=== PATIENT | male | born 1990 | race Caucasian/White ===

== ENCOUNTER 2020-06-19 14:02 | Emergency (ER) | payer OTHER ==
[2020-06-19 14:40] VITALS: BP 136/83; PULSE 86; TEMP 98.7; BMI 30.4
[2020-06-19] MEDS ORDERED: SODIUM CHLORIDE 1,000 ML IV STA (14:50)
[2020-06-19] MEDS ORDERED: ONDANSETRON 4 MG/2 ML VIAL IVPUSH ONE (14:51)
--- NOTE | 2020-06-19 15:08 | PDOC ---
History of Present Illness - General Chief Complaint: Pain Stated Complaint: ABD PAIN Time Seen by Provider: 06/19/20 14:45 History Source: Patient Exam Limitations: No Limitations - History of Present Illness Initial Comments: 06/19/20 15:04 Patient is a 30-year-old male with no past medical history who presents to the ED with complaint of left-sided abdominal pain that started about 12:30 today. He states the pain started suddenly. He states he also had a similar pain 15 days ago which resolved on its own. He did not get seen 15 days ago for the pain. He denies any shortness of breath or chest pain. He denies any recent travel. He has not taken anything for his symptoms. He admits to some nausea without vomiting. He denies any dysuria or hematuria. He denies any allergies to medications. Past History - Medical History Allergies/Adverse Reactions: Allergies Allergy/AdvReac Type Severity Reaction Status Date / Time No Known Allergies Allergy Verified 06/19/20 14:23 Home Medications: Ambulatory Orders Tamsulosin HCl [Flomax] 0.4 mg PO DAILY #7 cap.er.24h 06/19/20 levoFLOXacin [Levaquin -] 250 mg PO DAILY #4 tablet 06/19/20 - Psycho-Social/Smoking History Smoking History: Never smoked Information on smoking cessation initiated: No - Substance Abuse Hx (Audit-C & DAST Scrn) How often the patient has a drink containing alcohol: Never Score: In Men: 4 or > Positive; In Women: 3 or > Positive: 0 Screen Result (Pos requires Nsg. Audit-10AR): Negative In the last yr the pt used illegal drug/Rx for NonMed reason: No Score: Yes response is considered Positive: 0 Screen Result (Positive result requires Nsg. DAST-10): Negative Review of Systems - Review of Systems Comments:: 06/19/20 15:05 - Review of Systems Able to Perform ROS?: Yes Constitutional: No: Fever, Chills, Loss of Appetite, Night Sweats, Weakness HEENTM: No: Eye Pain, Vision changes, Ear Pain, Throat Pain, Throat Swelling, Mouth Pain, Difficulty Swallowing Respiratory: No: Cough, Shortness of Breath, Wheezing, Sputum Production Cardiac (ROS): No: Chest Pain, Chest Tightness, Palpitations, Irregular Heart Beat, Edema ABD/GI: No: Vomiting, Diarrhea; positive: Left-sided abdominal pain and nausea : No Dysuria, No Hematuria, No Frequency, No Urgency, No Penile Discharge/Pain Musculoskeletal: No: Muscle Pain, Back Pain, Joint Pain, Muscle Weakness, Neck Pain Integumentary: No: Lesions, Rash Neurological: No: Headache, Numbness, Tingling, Weakness, Speech Difficulties *Physical Exam - Vital Signs Last Vital Signs Temp Pulse Resp BP Pulse Ox 98.7 F 86 17 136/83 99 06/19/20 14:18 06/19/20 14:18 06/19/20 14:18 06/19/20 14:18 06/19/20 14:18 - Physical Exam 06/19/20 15:06 - Physical Exam General Appearance: Nourished, Appropriately Dressed, No Distress HEENT: EOMI, Normal Voice, Hearing Grossly Normal Neck: Supple, No Lymphadenopathy (R), No Lymphadenopathy (L), No Rigidity, No Decreased range of motion Respiratory/Chest: Lungs Clear, Normal Breath Sounds. No Respiratory Distress, No Accessory Muscle Use Cardiovascular: Regular Rhythm, Regular Rate, S1, S2 Gastrointestinal/Abdominal: Normal Bowel Sounds, Soft. No Rebound, No Rigidity; there is some mid left abdominal tenderness to palpation. Positive CVA tenderness on the left. Positive voluntary guarding. No tympanitic abdomen Musculoskeletal: Normal Inspection. No Decreased Range of Motion Extremity: Normal Capillary Refill, Normal Inspection Integumentary: Normal Color, Dry. No Rash Neurologic: special education aide II-XII NML intact, Fully Oriented, Alert, Normal Mood/Affect, Normal Response ED Treatment Course - LABORATORY CBC & Chemistry Diagram: 06/19/20 15:00 06/19/20 15:00 - RADIOLOGY Radiology Studies Ordered: Category Date Time Status SPIRAL- RENAL-STONE CT [CT] Stat CT Scan 06/19/20 14:51 Ordered - Medications Given in the ED: ED Medications Discontinued Medications Generic Name Dose Route Start Last Admin Trade Name Freq PRN Reason Stop Dose Admin Ondansetron HCl 4 mg 06/19/20 14:51 06/19/20 15:02 Zofran Injection IVPUSH 06/19/20 14:52 4 mg ONCE ONE Administration Medical Decision Making - Medical Decision Making 06/19/20 15:07 Assessment: Patient is a 30-year-old male with mid left abdominal tenderness and left flank tenderness since 12:30 today. Plan: -Saline lock and labs ordered -Urinalysis and urine culture ordered -Spiral CT ordered -4 mg of Zofran -Will reassess 06/19/20 17:23 Patient is doing well after IV Tylenol. He is pending a CT scan read. His labs show some blood in his urine but otherwise showed no acute pathology. 06/19/20 17:42 Patient has a 3 mm obstructing stone at the UVJ with mild perinephric stranding and hydroureter. Dr. Abram Willard he has been paged to discuss treatment plan. 06/19/20 17:[address] Abram Willard and he suggest placing the patient on Flomax, giving her Levaquin 250 mg p.o. daily and having the patient follow-up with him in the office on Saturday 06/23 at 9 AM. The patient is to call Monday morning to advise the office that he is coming in. I have made the patient aware and he understands and agrees with this treatment plan and he is stable for discharge. Discharge - Discharge Information Problems reviewed: Yes Clinical Impression/Diagnosis: Hydronephrosis with obstructing calculus, Left renal stone Condition: Stable Disposition: HOME - Additional Discharge Information Prescriptions: Tamsulosin HCl [Flomax] 0.4 mg PO DAILY #7 cap.er.24h levoFLOXacin [Levaquin -] 250 mg PO DAILY #4 tablet - Follow up/Referral Referrals: Grabiel Farrar MD [Staff Physician] - (Follow up Monday06/23/20 at 9 am) - Patient Discharge Instructions Patient Printed Discharge Instructions: DI for Kidney Stones Additional Instructions: Get plenty of rest and drink plenty of fluids. Take the antibiotics as prescribed and complete the entire course. Take the Flomax as prescribed and take it at night. Follow-up with Dr. Abram Willard on 06/23/2020, at 9 AM in his office. Call the office on Friday 06/22 to give your insurance information and schedule the appointment. You can let the office staff know that he suggested you be seen on Monday at 9 AM. Take Tylenol or ibuprofen for your pain. - Post Discharge Activity Work/Back to School Note: Back to Work
[2020-06-19] MEDS ORDERED: ACETAMINOPHEN 1000 MG/100 ML VIAL (NON FORMULARY) IVPB ONE (15:28)
[2020-06-19 15:29] LABS: BASO % 0.3 % (0-2.0); EOS % 0.1 % (0-4.5); HEMATOCRIT 45.4 % (35.4-49); HEMOGLOBIN 15.3 GM/dL (11.7-16.9); MCH 29.9 pg (25.7-33.7); MCHC 33.7 g/dl (32.0-35.9); MEAN CELL VOLUME 88.8 fl (80-96); MEAN PLT VOLUME 9.6 fl (7.5-11.1); MONO % 5.2 % (3.8-10.2); NEUT % 79.4 % (42.8-82.8); PLATELET COUNT 235 K/MM3 (134-434); RBC 5.11 M/mm3 (4.00-5.60); RDW 13.4 % (11.9-15.9); WHITE BLOOD COUNT 9.9 K/mm3 (4.0-10.0)
[2020-06-19 15:34] LABS: EPI CELLS 4 /uL (0-25.1); HYALINE CASTS 2 /uL (0-3.1); PH,URINE 5.5 (5.0-8.0); URINE APPEARANCE CLEAR; URINE BACTERIA 6 /uL (0-1359); URINE BILIRUBIN NEGATIVE (NEGATIVE); URINE COLOR YELLOW; URINE GLUCOSE (UA) NEGATIVE (NEGATIVE); URINE KETONE 1+ (NEGATIVE); URINE LEUK ESTERASE NEGATIVE (NEGATIVE); URINE NITRITE NEGATIVE (NEGATIVE); URINE PROTEIN TRACE (NEGATIVE); URINE RBC 220 /uL (0-23.9); URINE WBC 6 /uL (0-25.8)
[2020-06-19] MEDS ORDERED: ACETAMINOPHEN INJECTION 100 ML IVPB ONE (15:44)
[2020-06-19 16:09] LABS: ALBUMIN 4.3 g/dl (3.4-5.0); BILIRUBIN,TOTAL 0.3 mg/dL (0.2-1); BLOOD UREA NITROGEN 13.9 mg/dL (7-18); CALCIUM 9.2 mg/dL (8.5-10.1); CREATININE 0.8 mg/dL (0.55-1.3); TOT PROT 7.6 g/dl (6.4-8.2)
[2020-06-19] MEDS ORDERED: KETOROLAC TROMETHAMINE 15 MG/ML VIAL IVPUSH ONE (18:12)
[2020-06-19] MEDS ORDERED: KETOROLAC TROMETHAMINE 15 MG/ML VIAL ONE (18:13)
== END 2020-06-19 18:18 | disposition home or self-care (01) ==
LOC: JER 14:02
PROC: 3E0333Z Introduction of Anti-inflammatory into Peripheral Vein, Percutaneous Approach (ICD-10-PCS; principal; 2020-06-19)
DX: N13.2 Hydronephrosis with renal and ureteral calculous obstruction (principal)
CPT/HCPCS: 36415; 74176-TC; 80053; 81003; 83690; 85025; 87086; 99285-25; J0131